=== PATIENT | female | born 1985 | race Caucasian/White ===

== ENCOUNTER 2018-06-30 17:41 | Emergency (ER) | payer OTHER ==
[2018-06-30] MEDS ORDERED: NS 0.9% 1000 ML** 1,000 ML IV ONE (19:28)
--- NOTE | 2018-06-30 19:41 | ED ---
GI/ HPI - HPI Summary HPI Summary: This patient is a 33 year old F presenting to ED with a chief complaint of vaginal bleeding with since 1629 today. The patient is 9 weeks . A0. The CC is described as bleeding through her underwear in the beginning but has lessened since onset. She reports that this has not happened with her previous two kids. The patient rates the pain 0/10 in severity. Symptoms aggravated by nothing. Symptoms alleviated by nothing. Patient denies any abdominal pain or cramping. The patient sees a stem crusher at [facility]. Blood type is O+. PMHx of two C-sections. Patient is a non smoker, does not drink alcohol, nor take any substances. FHx HTN, stroke, HLD, CAD, and cancer. - History of Current Complaint Chief Complaint: EDVaginalBleeding Time Seen by Provider: 06/30/18 19:28 Stated Complaint: 9 WEEKS /BLEEDING Hx Obtained From: Patient Hx Last Menstrual Period: IUD Onset/Duration: Started Hours Ago - 163 today, Still Present Timing: Constant, Lasting Hours Current Severity: None Pain Intensity: 0 Associated Signs and Symptoms: Positive: Other: - vaginal bleeding described as bleeding through her underwear but has lessened since onset. Negative: Abdominal Pain - denies abdominal pain or cramping - Allergy/Home Medications Allergies/Adverse Reactions: Allergies Allergy/AdvReac Type Severity Reaction Status Date / Time Gadolinium-Containing Allergy Hives Verified 06/30/18 18:09 Contrast Medi codeine AdvReac Nausea Verified 06/30/18 18:07 Sulfa (Sulfonamide AdvReac Nausea Verified 06/30/18 18:07 Antibiotics) Home Medications: Home Medications Nitrofurantoin Macrocrystal [Nitrofurantoin] 100 mg PO BID 06/30/18 [History Confirmed 06/30/18] Vit 108/Iron/Folic AC [ One Tablet] 1 each PO DAILY 06/30/18 [ History Confirmed 06/30/18] PMH/Surg Hx/FS Hx/Imm Hx Endocrine/Hematology History: Denies: Hx Diabetes Cardiovascular History: Denies: Hx Hypertension, Hx Pacemaker/ICD History: Denies: Hx Renal Disease Sensory History: Denies: Hx Contacts or Glasses, Hx Hearing Aid Opthamlomology History: Denies: Hx Contacts or Glasses Psychiatric History: Denies: Hx Panic Disorder - Surgical History Surgery Procedure, Year, and Place: X2. CYST REMOVED RING FINGER LEFT HAND Hx Anesthesia Reactions: No - WOULD PREFER A SPINAL ANESTHETIC Infectious Disease History: No Infectious Disease History: Denies: Traveled Outside the [place] in Last 30 Days - Family History Known Family History: Positive: Cardiac Disease, Hypertension, Other Family History: stroke, HLD, cancer - Social History Alcohol Use: Rare Substance Use Type: Reports: None Smoking Status (MU): Never Smoked Tobacco Review of Systems Negative: Abdominal Pain - denies abdominal pain and cramping Positive: other - vaginal bleeding All Other Systems Reviewed And Are Negative: Yes Physical Exam - Summary Physical Exam Summary: VITAL SIGNS: Reviewed. GENERAL: Patient is a well-developed and nourished FEMALE who is lying comfortable in the stretcher. Patient is not in any acute respiratory distress. HEAD AND FACE: No signs of trauma. No ecchymosis, hematomas or skull depressions. No sinus tenderness. EYES: PERRLA, EOMI x 2, No injected conjunctiva, no nystagmus. EARS: Hearing grossly intact. Ear canals and tympanic membranes are within normal limits. MOUTH: Oropharynx within normal limits. NECK: Supple, trachea is midline, no adenopathy, no JVD, no carotid bruit, no c- spine tenderness, neck with full ROM. CHEST: Symmetric, no tenderness at palpation LUNGS: Clear to auscultation bilaterally. No wheezing or crackles. CVS: Regular rate and rhythm, S1 and S2 present, no murmurs or gallops appreciated. ABDOMEN: Soft, non-tender. No signs of distention. No rebound no guarding, and no masses palpated. Bowel sounds are normal. EXTREMITIES: FROM in all major joints, no edema, no cyanosis or clubbing. NEURO: Alert and oriented x 3. No acute neurological deficits. Speech is normal and follows commands. SKIN: Dry and warm PELVIC EXAM: Female lathe hand, Nurse Tata, was present during exam. There is minimal amount of old blood and the cervix is closed. Triage Information Reviewed: Yes Vital Signs On Initial Exam: Initial Vitals Temp Pulse Resp BP Pulse Ox 99.0 F 93 20 150/90 100 06/30/18 18:04 06/30/18 18:04 06/30/18 18:04 06/30/18 18:04 06/30/18 18:04 Vital Signs Reviewed: Yes Diagnostics - Vital Signs Vital Signs Temp Pulse Resp BP Pulse Ox 06/30/18 18:04 99.0 F 93 20 150/90 100 - Laboratory Result Diagrams: 06/30/18 18:47 06/30/18 18:47 Lab Statement: Any lab studies that have been ordered have been reviewed, and results considered in the medical decision making process. - Ultrasound No standard instances Ultrasound Interpretation Completed By: Radiologist Summary of Ultrasound Findings: US reveals a single live intrauterine fetus with an estimated age of 9 weeks 3 days. The EDC is 01/30/2019. GIGU Course/Dx - Course Assessment/Plan: Blood work without any significant abnormality except for AST of 75. Blood type is O+. During the physical exam and pelvic exam the patient has really slight amount of bleeding. ultrasound impression: single live intrauterine fetus with an estimated age of 9 weeks and 3 days. The EDC is 01/30/19. This point I discussed case with Dr. Hoyos from the [facility] and he recommends for the patient to be discharged home with follow-up with OB has a scheduled. The patient is to be addressed. She was instructed to return to the emergency department she develops any increase in bleeding or abdominal cramping. Patient understands and agrees. - Diagnoses Differential Diagnoses - Female: Threatened Provider Diagnoses: Threatened - Physician Notifications Discussed Care Of Patient With: David Hoyos Time Discussed With Above Provider: 21:32 Instructed by Provider To: Other - Dr. Hoyos recommends to discharge the patient and follow up with OB. Discharge - Sign-Out/Discharge Documenting (check all that apply): Patient Departure - discharge Patient Received Moderate/Deep Sedation with Procedure: No - Discharge Plan Condition: Stable Disposition: HOME Patient Education Materials: Threatened Miscarriage (ED) Forms: *Work Release Referrals: David Hoyos MD [Medical Doctor] - Additional Instructions: RETURN TO THE ED FOR ANY NEW OR WORSENING SYMPTOMS. - Billing Disposition and Condition Condition: STABLE Disposition: Home - Attestation Statements Document Initiated by Scribe: Yes Documenting Scribe: Forrest Estrada Provider For Whom Scribe is Documenting (Include Credential): Manpreet Abdul MD Scribe Attestation: Forrest Carrasco, scribed for Manpreet Abdul MD on 06/30/18 at 2149. Scribe Documentation Reviewed: Yes Provider Attestation: The documentation as recorded by the scribe, Forrest Estrada accurately reflects the service I personally performed and the decisions made by me, Manpreet Abdul MD Status of Scribe Document: Viewed
[2018-06-30 19:53] LABS: ABS Basophils 0 10^3/ul (0-0.2); ABS Eosinophils 0 10^3/ul (0-0.6); ABS Lymphocytes 1.9 10^3/ul (1.0-4.8); ABS Monocytes 0.5 10^3/ul (0-0.8); ABS Neutrophils 5.8 10^3/ul (1.5-7.7); ABS Nucleated RBC 0 10^3/ul; Eosinophil % 0.3 %; Hematocrit 38 % (35-47); Hemoglobin 12.6 g/dl (12.0-16.0); Lymphocyte % 22.5 %; Mean Corpuscular HGB Conc 34 g/dl (31-36); Mean Corpuscular Hemoglobin 30 pg (27-31); Mean Corpuscular Volume 89 fL (80-97); Mean Platelet Volume 8.1 fL (7.4-10.4); Nucleated Red Blood Cells % 0; Platelet Count 249 10^3/ul (150-450); Red Blood Count 4.23 10^6/ul (4.00-5.40); Red Cell Distribution Width 14 % (10.5-15); White Blood Count 8.3 10^3/ul (3.5-10.8)
[2018-06-30 20:09] LABS: Albumin 4.4 g/dL (3.2-5.2); Albumin/Globulin Ratio 1.9 (1-3); BUN/Creatinine Ratio 13.8 (8-20); Calcium 9.2 mg/dL (8.6-10.3); EGFR African American 143.1 (>60); EGFR Non-African American 118.3 (>60); Globulin 2.3 g/dL (2-4); Potassium 3.8 mmol/L (3.5-5.0); Total Bilirubin 0.2 mg/dL (0.2-1.0); Total Protein 6.7 g/dL (6.4-8.9)
[2018-06-30 21:45] VITALS: BP 106/72
== END 2018-06-30 21:45 | disposition home or self-care (01) ==
LOC: ED 17:41
DX: O20.0 Threatened abortion (principal); O46.91 Antepartum hemorrhage, unspecified, first trimester; Z3A.09 9 weeks gestation of pregnancy; Z88.2 Allergy status to sulfonamides
CPT/HCPCS: 36415; 76801; 80053; 83605; 84702; 85025; 86850; 86900; 86901; 96360; 99283

== ENCOUNTER 2018-08-04 09:01 | Emergency (ER) | payer OTHER ==
--- NOTE | 2018-08-04 10:34 | ED ---
Head Injury - HPI Summary HPI Summary: Patient is a 33-year-old 14 week female presenting to the ED after falling on ice today and striking the back of her head. She endorses lightheadedness, denies nausea, denies QUEZADA Denies LOC. Denies blood thinners. Denies any neuro deficits. Patient is A & O x 3. Denies vaginal bleeding or abdominal pain. - History Of Current Complaint Chief Complaint: EDHeadInjury Stated Complaint: 14 WEEKS /FELL/HEAD INJURY PER PT Time Seen by Provider: 08/04/18 09:48 Hx Obtained From: Patient Hx Last Menstrual Period: IUD Mechanism Of Injury: Blunt Trauma Onset/Duration: Started Hours Ago Onset of Pain: Minutes Severity Currently: Moderate Severity Initially: Moderate Pain Intensity: 7 Pain Scale Used: 0-10 Numeric Location of Head Injury: Occipital Character: Sharp Aggravating Factor(s): Movement Alleviating Factor(s): Rest Associated Signs And Symptoms: Negative - Risk Factors SDH Risk Factor: Negative - Allergies/Home Medications Allergies/Adverse Reactions: Allergies Allergy/AdvReac Type Severity Reaction Status Date / Time Gadolinium-Containing Allergy Hives Verified 08/04/18 09:14 Contrast Medi codeine AdvReac Nausea Verified 08/04/18 09:14 Sulfa (Sulfonamide AdvReac Nausea Verified 08/04/18 09:14 Antibiotics) PMH/Surg Hx/FS Hx/Imm Hx Previously Healthy: Yes Endocrine/Hematology History: Denies: Hx Diabetes Cardiovascular History: Denies: Hx Hypertension, Hx Pacemaker/ICD History: Denies: Hx Renal Disease Sensory History: Denies: Hx Contacts or Glasses, Hx Hearing Aid Opthamlomology History: Denies: Hx Contacts or Glasses Psychiatric History: Denies: Hx Panic Disorder - Surgical History Surgery Procedure, Year, and Place: X2. CYST REMOVED RING FINGER LEFT HAND Hx Anesthesia Reactions: No - WOULD PREFER A SPINAL ANESTHETIC - Immunization History Hx Pertussis Vaccination: No Immunizations Up to Date: Yes Infectious Disease History: No Infectious Disease History: Denies: Traveled Outside the [place] in Last 30 Days - Family History Known Family History: Positive: Cardiac Disease, Hypertension, Other Family History: stroke, HLD, cancer - Social History Occupation: Employed Full-time Lives: With Family Alcohol Use: None Hx Substance Use: No Substance Use Type: Reports: None Hx Tobacco Use: No Smoking Status (MU): Never Smoked Tobacco Review of Systems Constitutional: Negative Negative: Fever, Chills, Fatigue, Skin Diaphoresis Negative: Palpitations, Chest Pain Negative: Shortness Of Breath, Cough Negative: Abdominal Pain, Vomiting, Diarrhea Positive: no symptoms reported, see HPI Negative: Arthralgia, Myalgia Positive: Other - no evidence of head trauma Negative: Headache, Weakness, Paresthesia, Numbness Psychological: Normal All Other Systems Reviewed And Are Negative: Yes Physical Exam Triage Information Reviewed: Yes Vital Signs On Initial Exam: Initial Vitals Temp Pulse Resp BP Pulse Ox 99.7 F 94 16 136/84 100 08/04/18 09:10 08/04/18 09:10 08/04/18 09:10 08/04/18 09:10 08/04/18 09:10 Vital Signs Reviewed: Yes Appearance: Positive: Well-Appearing, Well-Nourished Skin: Positive: Warm, Skin Color Reflects Adequate Perfusion Head/Face: Positive: Normal Head/Face Inspection Eyes: Positive: EOMI, GARRISON, Conjunctiva Clear Neck: Positive: Supple, No Lymphadenopathy Respiratory/Lung Sounds: Positive: Clear to Auscultation, Breath Sounds Present Cardiovascular: Positive: RRR, Pulses are Symmetrical in both Upper and Lower Extremities Musculoskeletal: Positive: Normal, Strength/ROM Intact Neurological: Positive: Sensory/Motor Intact, Alert, Oriented to Person Place, Time, CN Intact II-III, Reflexes Intact, NV Bundle Intact Distally, Normal Gait , Finger to Nose, Speech Normal Psychiatric: Positive: Normal, Affect/Mood Appropriate AVPU Assessment: Alert - [place] Coma Scale Best Eye Response: 4 - Spontaneous Best Motor Response: 6 - Obeys Commands Best Verbal Response: 5 - Oriented Coma Scale Total: 15 Diagnostics - Vital Signs Vital Signs Temp Pulse Resp BP Pulse Ox 08/04/18 09:10 99.7 F 94 16 136/84 100 - Laboratory Lab Statement: Any lab studies that have been ordered have been reviewed, and results considered in the medical decision making process. Head Injury Course/Dx Course Of Treatment: Patient is evaluated for striking the back of her head after falling on ice today. She denies LOC. She denies any headache. She states she feels otherwise at her baseline, however is slightly dizzy rating as a 2/10. Full neuro exam normal. Discussed options with patient and patient would like to defer a CT scan at this time. She will be dc'd home with head injury. - Diagnoses Differential Diagnosis/HQI/PQRI: Concussion With LOC Provider Diagnoses: Head injury Discharge - Sign-Out/Discharge Documenting (check all that apply): Patient Departure Patient Received Moderate/Deep Sedation with Procedure: No - Discharge Plan Condition: Stable Disposition: HOME Patient Education Materials: Cervical Strain (ED), Head Injury (ED) Referrals: Nicole ZULUAGA,Darshan Masterson [Primary Care Provider] - Additional Instructions: Moist heat to the area Tylenol 650mg three times daily Do not take ibuprofen If symptoms worsen - return to the ED - Billing Disposition and Condition Condition: STABLE Disposition: Home
[2018-08-04 10:43] VITALS: BP 118/75
== END 2018-08-04 10:41 | disposition home or self-care (01) ==
LOC: ED 09:01
DX: O26.891 Other specified pregnancy related conditions, first trimester (principal); S09.90XA Unspecified injury of head, initial encounter; W00.0XXA Fall on same level due to ice and snow, initial encounter; Y92.9 Unspecified place or not applicable; Z3A.14 14 weeks gestation of pregnancy; Z88.5 Allergy status to narcotic agent; Z88.2 Allergy status to sulfonamides; Z91.041 Radiographic dye allergy status
CPT/HCPCS: 99282

== ENCOUNTER 2018-11-02 14:50 | Emergency (ER) | payer OTHER ==
--- NOTE | 2018-11-02 16:41 | ED ---
- HPI Summary HPI Summary: This pt is a 33 y/o female, currently 7 months , [facility] c/o swelling in bilateral lower extremities and SOB x3 days. Pt states her legs are also very sore. Today she had palpitations as well. She saw Mayela , credit products officer from [facility], and was told she was retaining fluid. During her last ultrasound pt was told she had excessive amniotic fluid and enlarged kidneys. Denies fever, visual changes, headaches. She notes in the past month pt has gained 20 lbs. Pt denies any complications with past pregnancies. PMHx: heart murmur. - History of Current Complaint Chief Complaint: EDDysrhythmPalp Stated Complaint: 7 MONTHS PREG/SOB/HEART PALP./SWOLLEN LEGS PER PT Time Seen by Provider: 11/02/18 16:29 Hx Obtained From: Patient Chief Complaint: Other: - swelling in lower extremities and SOB Onset/Duration: Started Days Ago, Still Present Timing: Lasting Days Current Severity: Moderate Pain Intensity: 7 Location of Pain: Other: - lower extremities Aggravating Factors: Nothing Alleviating Factors: Nothing Associated Signs and Symptoms: Positive: Other: - POS: palpitations, SOB. NEG: visual changes, headache. Negative: Fever - Allergies/Home Medications Allergies/Adverse Reactions: Allergies Allergy/AdvReac Type Severity Reaction Status Date / Time Gadolinium-Containing Allergy Hives Verified 08/04/18 09:14 Contrast Medi codeine AdvReac Nausea Verified 08/04/18 09:14 Sulfa (Sulfonamide AdvReac Nausea Verified 08/04/18 09:14 Antibiotics) Home Medications: Home Medications Ferrous Sulfate TAB* 325 mg PO BID 11/02/18 [History Confirmed 11/02/18] PMH/Surg Hx/FS Hx/Imm Hx Endocrine/Hematology History: Denies: Hx Diabetes Cardiovascular History: Reports: Other Cardiovascular Problems/Disorders - heart murmur Denies: Hx Hypertension, Hx Pacemaker/ICD History: Denies: Hx Renal Disease Sensory History: Denies: Hx Contacts or Glasses, Hx Hearing Aid Opthamlomology History: Denies: Hx Contacts or Glasses Psychiatric History: Denies: Hx Panic Disorder - Surgical History Surgery Procedure, Year, and Place: X2. CYST REMOVED RING FINGER LEFT HAND Hx Anesthesia Reactions: No - WOULD PREFER A SPINAL ANESTHETIC Infectious Disease History: No Infectious Disease History: Denies: Traveled Outside the [place] in Last 30 Days - Family History Known Family History: Positive: Cardiac Disease, Hypertension Family History: stroke, HLD, cancer. Father with RA - Social History Alcohol Use: None Hx Substance Use: No Substance Use Type: Reports: None Hx Tobacco Use: No Smoking Status (MU): Never Smoked Tobacco Review of Systems Constitutional: Other - POS: weight gain Negative: Fever, Chills Negative: Other - NEGATIVE: visual changes Positive: Palpitations Positive: Shortness Of Breath Musculoskeletal: Other - POS: bilateral LE pain Positive: Edema - in bilateral LE Negative: Headache All Other Systems Reviewed And Are Negative: Yes Physical Exam - Summary Physical Exam Summary: VITAL SIGNS: Reviewed. GENERAL: Patient is a well-developed and nourished female who is lying comfortable in the stretcher. Patient is not in any acute respiratory distress. HEAD AND FACE: Normocephalic EYES: PERRLA, EOMI x 2. EARS: Hearing grossly intact. MOUTH: Oropharynx within normal limits. NECK: Supple, trachea is midline, no adenopathy, no JVD, no carotid bruit. CHEST: Symmetric, no tenderness at palpation LUNGS: Clear to auscultation bilaterally. No wheezing or crackles. CVS: Regular rate and rhythm, S1 and S2 present, no murmurs or gallops appreciated. ABDOMEN: Soft, non-tender. Bowel sounds are normal. No abdominal abnormal pulsations. Abdomen is distended above her umbilicus. EXTREMITIES: Full ROM in all major joints, no cyanosis or clubbing. Bilateral lower extremity edema. NEURO: Alert and oriented x 3. No acute neurological deficits. Speech is normal and follows commands. SKIN: Dry and warm - Physical Exam Triage Information Reviewed: Yes Vital Signs On Initial Exam: Initial Vitals Temp Pulse Resp BP Pulse Ox 97.7 F 87 20 144/93 100 11/02/18 14:53 11/02/18 14:53 11/02/18 14:53 11/02/18 14:53 11/02/18 14:53 Vital Signs Reviewed: Yes Diagnostics - Vital Signs Vital Signs Temp Pulse Resp BP Pulse Ox 11/02/18 14:53 97.7 F 87 20 144/93 100 - Laboratory Result Diagrams: 11/02/18 16:56 11/02/18 16:56 Lab Statement: Any lab studies that have been ordered have been reviewed, and results considered in the medical decision making process. - Ultrasound No standard instances Ultrasound Interpretation Completed By: Radiologist Summary of Ultrasound Findings: Biophysical Profile US IMPRESSION: 1. Abnormal biophysical profile of 10/31. 2. hydrops. Dr. Abdul has reviewed this report. - EKG 15:04 Cardiac Rate: NL - at 76 bpm EKG Rhythm: Sinus Rhythm Summary of EKG Findings: No ST elevations. Re-Evaluation - Re-Evaluation First Eval Re-Evaluation Time: 20:47 Comment: Dr. Quick, OB, at bedside with patient. Course/Dx - Course Assessment/Plan: This pt is a 33 y/o female, currently 7 months , presenting to [facility] c/o swelling in bilateral lower extremities and SOB x3 days. Pt states her legs are also very sore. Today she had palpitations as well. She saw Mayela, credit products officer from [facility], and was told she was retaining fluid. During her last ultrasound pt was told she had excessive amniotic fluid and enlarged kidneys. Denies fever, visual changes, headaches. She notes in the past month pt has gained 20 lbs. Pt denies any complications with past pregnancies. PMHx: heart murmur. Test results without any significant abnormality except for hemoglobin 9.7, hematocrit 29, total protein of 5.6, albumin 2.9. Urinalysis is negative for UTI. Transabdominal ultrasound interpreted by Dr. Quick reports that the patient has hydrops fetalis. She came and assessed the patient and she recommends to transfer the patient to [facility]. Dr. Fuentes discussed the case with Dr. Mckeon from [facility] who accepted the patient for admission. The patient is hemodynamically stable, alert and oriented 3. 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 Quick, OB, who recommends an US. [20:13] Dr. Quick calls and reports US results and recommends transfer. [21:04] Discussed with [facility] and they recommend transfer center at [facility]. [21:25] Dr. Mckeon, from [facility], accepts the pt for transfer. - Critical Care Time Critical Care Time: 75-104 min Discharge - Sign-Out/Discharge Documenting (check all that apply): Patient Departure - Transfer to [facility] Patient Received Moderate/Deep Sedation with Procedure: No - Discharge Plan Condition: Stable Disposition: TRANS HIGHER LVL OF CARE FAC Referrals: Mayela Hayes CNM [Primary Care Provider] - - Billing Disposition and Condition Condition: STABLE Disposition: Trans Higher Lvl of Care Fac - Attestation Statements Document Initiated by Scribe: Yes Documenting Scribe: Smiley Otto Provider For Whom Jacquie is Documenting (Include Credential): Manpreet Abdul MD Scribe Attestation: Smiley Carrasco scribed for Manpreet Abdul MD on 11/02/18 at 2152. Scribe Documentation Reviewed: Yes Provider Attestation: The documentation as recorded by the Smiley velez accurately reflects the service I personally performed and the decisions made by , Manpreet Abdul MD Status of Scribe Document: Viewed
[2018-11-02 17:06] LABS: ABS Lymphocytes 1.9 10^3/ul (1.0-4.8); ABS Monocytes 0.8 10^3/ul (0-0.8); ABS Neutrophils 7.1 10^3/ul (1.5-7.7); Eosinophil % 0.4 %; Hematocrit 29 % (35-47); Hemoglobin 9.7 g/dL (12.0-16.0); Lymphocyte % 19.3 %; Mean Corpuscular HGB Conc 33 g/dL (31-36); Mean Corpuscular Hemoglobin 27 pg (27-31); Mean Corpuscular Volume 82 fL (80-97); Mean Platelet Volume 9.6 fL (7.4-10.4); Platelet Count 197 10^3/uL (150-450); Red Blood Count 3.57 10^6 /uL (3.70-4.87); Red Cell Distribution Width 13 % (10-15); White Blood Count 9.9 10^3/uL (3.5-10.8)
[2018-11-02 17:08] LABS: Urine Appearance Clear; Urine Bilirubin Negative (Negative); Urine Blood Negative (Negative); Urine Color Straw; Urine Glucose Negative (Negative); Urine Ketones Negative (Negative); Urine Nitrite Negative (Negative); Urine Protein Negative (Negative); Urine Specific Gravity 1.006 (1.010-1.030); Urine Urobilinogen Negative (Negative)
[2018-11-02 17:27] LABS: Albumin 2.9 g/dL (3.2-5.2); Albumin/Globulin Ratio 1.1 (1-3); BUN/Creatinine Ratio 15.9 (8-20); C Reactive Protein 2.66 mg/L (<8.01); Calcium 9.6 mg/dL (8.6-10.3); EGFR African American 130.1 (>60); EGFR Non-African American 107.5 (>60); Globulin 2.7 g/dL (2-4); Potassium 4.4 mmol/L (3.5-5.0); Total Bilirubin 0.2 mg/dL (0.2-1.0); Total Protein 5.6 g/dL (6.4-8.9)
[2018-11-02 19:15] VITALS: BP 135/85
--- NOTE | 2018-11-02 21:55 | CONSULT ---
Consult Consult: Consult/Transfer Note/History and Physical HPI: Pt is a who was sent from the office today @27wks due to complaints of edema, heart palpitations, vision changes, fatigue and SOB. Her EDC is 02/01/19 by LMP confirmed with first trimester sono. Her fundal height measured 33cm. She says the symptoms first developed about 3 days ago. Her had been uncomplicated prior to this. She had a normal NIPT, msafp and anatomy scan. She is 0+, antibody negative. She did not have CMV, syphilis , parvo or toxo titers drawn with her labs. She denies known sick contacts. ROS: denies nausea/vomiting, RUQ pain, headache, contractions, LOF/VB. Reports +FM. 10 point ROS otherwise negative. Medications: PNV Allergies: sulfa, codeine, Gadolinium contrast medium Med Hx: Pyelonephritis in prior Surg Hx: CSx2, torn ligament repair Enlisted Aircrew/Aerial Observer/Gunner Hx: See office H&P for complete details. Complications include PPROM with 35wk delivery for her second . All 3 pregnancies have the same dad. Soc Hx: Denies tobacco, alcohol and illicit drug use. Lives with her family. Exam: Gen: white female lying comfortably in bed Lungs: CTAB CV: RRR, no murmurs appreciated Abd: gravid, NT Ext: 2+pitting edema extending to the knee bilaterally Vital Signs Temp 97.7 F 11/02/18 14:53 Pulse 87 11/02/18 19:00 Resp 20 11/02/18 14:53 BP 135/85 11/02/18 18:46 Pulse Ox 99 11/02/18 19:00 Laboratory Results - last 24 hr 11/02/18 11/02/18 11/02/18 16:54 16:56 16:56 WBC 9.9 RBC 3.57 L Hgb 9.7 L Hct 29 L MCV 82 MCH 27 MCHC 33 RDW 13 Plt Count 197 MPV 9.6 Neut % (Auto) 72.0 Lymph % (Auto) 19.3 Karnes % (Auto) 7.9 Eos % (Auto) 0.4 Baso % (Auto) 0.4 Absolute Neuts (auto) 7.1 Absolute Lymphs (auto) 1.9 Absolute Monos (auto) 0.8 Absolute Eos (auto) 0.0 Absolute Basos (auto) 0.0 Absolute Nucleated RBC 0.0 Nucleated RBC % 0.0 Sodium 135 Potassium 4.4 Chloride 107 Carbon Dioxide 22 Anion Gap 6 BUN 10 Creatinine 0.63 Est GFR ( Amer) 130.1 Est GFR (Non-Af Amer) 107.5 BUN/Creatinine Ratio 15.9 Glucose 89 Calcium 9.6 Total Bilirubin 0.20 AST 20 ALT 22 Alkaline Phosphatase 83 Troponin I 0.00 C-Reactive Protein 2.66 B-Natriuretic Peptide Total Protein 5.6 L Albumin 2.9 L Globulin 2.7 Albumin/Globulin Ratio 1.1 Urine Color Straw Urine Appearance Clear Urine pH 6.0 Ur Specific Crum 1.006 L Urine Protein Negative Urine Ketones Negative Urine Blood Negative Urine Nitrate Negative Urine Bilirubin Negative Urine Urobilinogen Negative Ur Leukocyte Esterase Negative Urine Glucose Negative 11/02/18 16:56 WBC RBC Hgb Hct MCV MCH MCHC RDW Plt Count MPV Neut % (Auto) Lymph % (Auto) Karnes % (Auto) Eos % (Auto) Baso % (Auto) Absolute Neuts (auto) Absolute Lymphs (auto) Absolute Monos (auto) Absolute Eos (auto) Absolute Basos (auto) Absolute Nucleated RBC Nucleated RBC % Sodium Potassium Chloride Carbon Dioxide Anion Gap BUN Creatinine Est GFR ( Amer) Est GFR (Non-Af Amer) BUN/Creatinine Ratio Glucose Calcium Total Bilirubin AST ALT Alkaline Phosphatase Troponin I C-Reactive Protein B-Natriuretic Peptide 59 Total Protein Albumin Globulin Albumin/Globulin Ratio Urine Color Urine Appearance Urine pH Ur Specific Crum Urine Protein Urine Ketones Urine Blood Urine Nitrate Urine Bilirubin Urine Urobilinogen Ur Leukocyte Esterase Urine Glucose Ultrasound: BPP 6/8 (-2 for no breathing). Breech presentation. EGA 31.1wks. EFW 1733g. +Ascites, scalp edema, pleural effusions and pericardial effusion. JESSY=16. 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 No evidence of preeclampsia at this point. Plan: Transfer to tertiary center. Plan discussed extensively with the patient. Questions answered to the best of my knowledge.
[2018-11-02] MEDS ORDERED: Betamethasone INJ* 6 MG/ML 5 ML VIAL (30 MG) IM ONE (22:02)
== END 2018-11-02 23:56 | disposition short-term general hospital (02) ==
LOC: ED 14:50
DX: O36.23X0 Maternal care for hydrops fetalis, third trimester, not applicable or unspecified (principal); O12.03 Gestational edema, third trimester; R06.02 Shortness of breath; R00.2 Palpitations; Z3A.00 Weeks of gestation of pregnancy not specified; Z88.5 Allergy status to narcotic agent; Z88.2 Allergy status to sulfonamides; Z91.041 Radiographic dye allergy status
CPT/HCPCS: 36415; 76819; 80053; 81003; 83880; 84484; 85025; 86140; 93005; 99283; J0702

== ENCOUNTER 2018-11-07 04:54 | Emergency (ER) | payer OTHER ==
--- NOTE | 2018-11-07 05:14 | ED ---
Lower Extremity - HPI Summary HPI Summary: This patient is a 33 year old female presenting to [facility] with a chief complaint of SOB and pedal edema since one day ago. She is 7 months and the fetus just received a blood transfusion last week and was discharged 2 days ago at [facility]. She says the pedal edema started one week ago. This is the patients third . - History of Current Complaint Chief Complaint: EDShortnessOfBreath Stated Complaint: "7 MONTHS PREG/SOB" PER PT Hx Obtained From: Patient Hx Last Menstrual Period: IUD Onset of Pain: Days Onset/Duration: Days Severity Initially: Moderate Severity Currently: Moderate Pain Intensity: 8 Pain Scale Used: 0-10 Numeric Timing: Constant, Lasting Days Alleviating Factor(s): Other - Position - Allergies/Home Medications Allergies/Adverse Reactions: Allergies Allergy/AdvReac Type Severity Reaction Status Date / Time Gadolinium-Containing Allergy Hives Verified 11/07/18 05:38 Contrast Medi codeine AdvReac Nausea Verified 11/07/18 05:38 Sulfa (Sulfonamide AdvReac Nausea Verified 11/07/18 05:38 Antibiotics) PMH/Surg Hx/FS Hx/Imm Hx Endocrine/Hematology History: Denies: Hx Diabetes Cardiovascular History: Reports: Other Cardiovascular Problems/Disorders - heart murmur Denies: Hx Hypertension, Hx Pacemaker/ICD History: Denies: Hx Renal Disease Sensory History: Denies: Hx Contacts or Glasses, Hx Hearing Aid Opthamlomology History: Denies: Hx Contacts or Glasses Psychiatric History: Denies: Hx Panic Disorder - Surgical History Surgery Procedure, Year, and Place: X2. CYST REMOVED RING FINGER LEFT HAND Hx Anesthesia Reactions: No - WOULD PREFER A SPINAL ANESTHETIC Infectious Disease History: No Infectious Disease History: Denies: Traveled Outside the [place] in Last 30 Days - Family History Known Family History: Positive: Cardiac Disease, Hypertension, Other Family History: stroke, HLD, cancer. Father with RA - Social History Alcohol Use: None Hx Substance Use: No Substance Use Type: Reports: None Hx Tobacco Use: No Smoking Status (MU): Never Smoked Tobacco Review of Systems Positive: Shortness Of Breath Positive: Edema All Other Systems Reviewed And Are Negative: Yes Physical Exam - Summary Physical Exam Summary: VITAL SIGNS: Reviewed. GENERAL: Patient is a well-developed and nourished FEMALE who is lying comfortable in the stretcher. Patient is not in any acute respiratory distress. HEAD AND FACE: No signs of trauma. No ecchymosis, hematomas or skull depressions. No sinus tenderness. EYES: PERRLA, EOMI x 2, No injected conjunctiva, no nystagmus. EARS: Hearing grossly intact. Ear canals and tympanic membranes are within normal limits. MOUTH: Oropharynx within normal limits. NECK: Supple, trachea is midline, no adenopathy, bilateral 6 cm JVD, no carotid bruit, no c-spine tenderness, neck with full ROM. CHEST: Symmetric, no tenderness at palpation LUNGS: Clear to auscultation bilaterally. No wheezing or crackles. Mild decrease breath sounds bilaterally, right more than left. CVS: Mild tachycardia and regular rhythm, S1 and S2 present, no murmurs or gallops appreciated. ABDOMEN: Soft, non-tender. No signs of distention. No rebound no guarding, and no masses palpated. Bowel sounds are normal. Fundal level 28 weeks. EXTREMITIES: FROM in all major joints, no cyanosis or clubbing.+1 bilateral lower extremity edema. NEURO: Alert and oriented x 3. No acute neurological deficits. Speech is normal and follows commands. SKIN: Dry and warm Triage Information Reviewed: Yes Vital Signs On Initial Exam: Initial Vitals Temp Pulse Resp BP Pulse Ox 98.2 F 87 20 158/85 98 11/07/18 04:56 11/07/18 04:56 11/07/18 04:56 11/07/18 04:56 11/07/18 04:56 Vital Signs Reviewed: Yes Diagnostics - Vital Signs Vital Signs Temp Pulse Resp BP Pulse Ox 11/07/18 04:56 98.2 F 87 20 158/85 98 - Laboratory Result Diagrams: 11/07/18 05:34 11/07/18 05:34 Lab Statement: Any lab studies that have been ordered have been reviewed, and results considered in the medical decision making process. - Radiology CXR Radiology Interpretation Completed By: ED Physician Summary of Radiographic Findings: Bilateral interstitial infiltrate. More on the bases consistent with pneumonia vs CHF. Pending official radiologist report. - EKG 0520 Cardiac Rate: NL EKG Rhythm: Sinus Rhythm - 96 BPM Summary of EKG Findings: Normal axis, normal interval, no ischemic changes. Lower Extremity Course/Dx - Course Course Of Treatment: This patient is a 33 year old female presenting to [facility] with a chief complaint of SOB and pedal edema since one day ago. She is 7 months and the fetus just received a blood transfusion 2 days ago at [facility]. Physical exam revealed +1-2 bilateral lower extremity edema, bilateral 6 cm JVD. CXR was remarkable for Bilateral interstitial infiltrate. More on the bases consistent with pneumonia vs CHF. Labs reveal BNP 519 H. This patient will be transfered to [facility]. YV[facility] Gonzalez accepted the patient for transfer. This plan was discussed with the patient and she was agreeable with this plan. - Diagnoses Provider Diagnoses: Preeclampsia - Physician Notifications Discussed Care Of Patient With: Jeremy Cannon MD - Diana SANTORO Instructed by Provider To: Transfer Admit/Transition Orders Completed By ED Provider: Yes Discharge - Sign-Out/Discharge Documenting (check all that apply): Patient Departure - Transfer - Discharge Plan Condition: Stable Disposition: TRANS HIGHER LVL OF CARE FAC Referrals: Mayela Hayes CNM [Primary Care Provider] - - Billing Disposition and Condition Condition: STABLE Disposition: Trans Higher Lvl of Care Fac - Attestation Statements Document Initiated by Scribe: Yes Documenting Scribe: Erasmo Roblero Provider For Whom Nahunibe is Documenting (Include Credential): Ralf Garcia MD Scribe Attestation: Erasmo Carrasco scribed for Ralf Garcia MD on 11/07/18 at 0648. Scribe Documentation Reviewed: Yes Provider Attestation: The documentation as recorded by the Erasmo velez accurately reflects the service I personally performed and the decisions made by , Ralf Garcia MD Status of Scribe Document: Viewed
[2018-11-07 05:44] LABS: ABS Lymphocytes 1.6 10^3/ul (1.0-4.8); ABS Neutrophils 10.1 10^3/ul (1.5-7.7); Corrected Retic Count 1.6 % (0.5-1.5); Eosinophil % 0.2 %; Hematocrit 27 % (35-47); Hematocrit for Retic CNT 27 % (35-47); Hemoglobin 8.9 g/dL (12.0-16.0); Immature Retic Fraction 0.69; Lymphocyte % 12.6 %; Mean Corpuscular HGB Conc 33 g/dL (31-36); Mean Corpuscular Hemoglobin 27 pg (27-31); Mean Corpuscular Volume 81 fL (80-97); Mean Platelet Volume 10.1 fL (7.4-10.4); Nucleated Red Blood Cells % 0.1; Platelet Count 185 10^3/uL (150-450); RBC Retic Count 3.31 10^6/uL (3.70-4.87); Red Blood Count 3.31 10^6 /uL (3.70-4.87); Red Cell Distribution Width 14 % (10-15); White Blood Count 12.8 10^3/uL (3.5-10.8)
[2018-11-07 05:56] LABS: Activated Partial Thrombo Time 26.2 seconds (26.0-38.0); INR 0.88 (0.82-1.09)
[2018-11-07 06:02] LABS: Albumin 2.9 g/dL (3.2-5.2); BUN/Creatinine Ratio 18.7 (8-20); C Reactive Protein 23.34 mg/L (<8.01); Calcium 8.4 mg/dL (8.6-10.3); EGFR African American 106.4 (>60); EGFR Non-African American 87.9 (>60); Globulin 2.8 g/dL (2-4); Total Bilirubin 0.4 mg/dL (0.2-1.0); Total Protein 5.7 g/dL (6.4-8.9)
[2018-11-07 06:04] LABS: Troponin I 0.02 ng/mL (<0.04)
[2018-11-07] MEDS ORDERED: cefTRIAXone(*) 1 GM in NS 0.9% 50 ML* 50 ML IVPB ONE (06:13)
[2018-11-07] MEDS ORDERED: Furosemide IV* 10 MG/ML VIAL (40 MG) IV SLOW PU ONE (06:23)
[2018-11-07 06:31] LABS: Urine Appearance Cloudy; Urine Bacteria 1+ (Absent); Urine Bilirubin Negative (Negative); Urine Blood Negative (Negative); Urine Color Yellow; Urine Glucose Negative (Negative); Urine Ketones Negative (Negative); Urine Nitrite Negative (Negative); Urine Protein 2+(100 mg/dL) (Negative); Urine Red Blood Cell Trace(0-2/hpf) (Absent); Urine Specific Gravity 1.013 (1.010-1.030); Urine Squamous Epithelial Cell Present (Absent); Urine Urobilinogen Negative (Negative); Urine White Blood Cell Trace(0-5/hpf) (Absent)
[2018-11-07] MEDS ORDERED: Magnesium Sulf 4 GM/100 ML IV* 4,000 MG/100 ML BAG IVPB ONE (06:41)
[2018-11-07] MEDS ORDERED: Magnesium Sulfate OB PREMIX* 40 GM/1,000 ML BAG IVPB SCH (07:00)
[2018-11-07 07:37] VITALS: BP 128/85
== END 2018-11-07 07:37 | disposition short-term general hospital (02) ==
LOC: ED 04:54
DX: O14.93 Unspecified pre-eclampsia, third trimester (principal); R60.0 Localized edema; R06.02 Shortness of breath; Z3A.00 Weeks of gestation of pregnancy not specified; Z88.5 Allergy status to narcotic agent; Z88.2 Allergy status to sulfonamides; Z91.041 Radiographic dye allergy status
CPT/HCPCS: 36415; 71045; 80053; 81003; 81015; 82803; 83880; 84484; 85025; 85045; 85610; 85730; 86140; 87040; 87077; 87086; 87150; 87205; 93005; 96365; 96375; 99284; J0696; J1940; J3475